=== PATIENT | female | born 1950 | race Caucasian/White ===

== ENCOUNTER 2017-06-03 12:43 | Emergency (ER) | payer OTHER, MEDICAID ==
[~2017-06-03] VITALS: Ht 157.4 cm; Wt 72.6 kg
[~2017-06-03 12:43] MED LIST: ASA; ASPIRIN81 M1 PO; CIDER VINEGAR; CINNAMON; GLIPIZIDE5 MG PO; HAIR SKIN NAIL; HYDROCODONE BIT1 T11 PO; LISINOPRIL20 MG PO; LISINOPRIL5 MG; METFORMIN HCL500 MG PO; METFORMIN1000 MG PO; MOTRIN800 MG PO; NEURONTIN100 MG PO; PERCOCET 325 MG1 TA2 PO; PRINIVIL10 MG PO; SIMVASTATIN20 MG PO; SIMVASTATIN80 MG PO; VIT D; VITAMIN C; VITAMIN D1000 IU PO; ZOVIRAX400 MG PO
[2017-06-03] MEDS ORDERED: NAPROSYN500 MG PO (15:04)
== END 2017-06-03 14:22 | disposition home or self-care (01) ==
LOC: ED 12:43
DX: S09.90XA Unspecified injury of head, initial encounter (principal); M25.512 Pain in left shoulder; E11.65 Type 2 diabetes mellitus with hyperglycemia; Z79.899 Other long term (current) drug therapy; Z79.82 Long term (current) use of aspirin; Z98.890 Other specified postprocedural states; W18.39XA Other fall on same level, initial encounter; Y93.01 Activity, walking, marching and hiking; Y92.89 Other specified places as the place of occurrence of the external cause; Y99.8 Other external cause status

== ENCOUNTER → 2019-08-26 | Day surgery (SDC) | payer OTHER, MEDICAID ==
[~2019-08-26] VITALS: Ht 154.9 cm; Wt 99.8 kg
[~2019-08-26] MED LIST changes: +CITALOPRAM20 MG PO; +LEVEMIR100 UNIT/1 SC; +LOSARTAN POTASS25 M1 PO; +NAPROSYN500 MG PO
[2019-08-26 07:40] VITALS: BP 142/56
[2019-08-26 09:10] VITALS: BP 111/80
[2019-08-26 09:25] VITALS: BP 142/71
[2019-08-26 09:40] VITALS: BP 158/67
== END | disposition home or self-care (01) ==
LOC: SDC 08-23 08:45
DX: Z12.11 Encounter for screening for malignant neoplasm of colon (principal); I10 Essential (primary) hypertension; E11.9 Type 2 diabetes mellitus without complications; F32.9 Major depressive disorder, single episode, unspecified; E66.01 Morbid (severe) obesity due to excess calories; Z68.41 Body mass index [BMI] 40.0-44.9, adult; Z98.890 Other specified postprocedural states; Z79.899 Other long term (current) drug therapy; Z79.82 Long term (current) use of aspirin; Z83.3 Family history of diabetes mellitus; Z82.49 Family history of ischemic heart disease and other diseases of the circulatory system
CPT/HCPCS: 00812; G0121

== ENCOUNTER 2020-05-26 14:35 | Emergency (ER) | payer OTHER, MEDICAID ==
[~2020-05-26] VITALS: Wt 100.7 kg
== END 2020-05-26 16:44 | disposition home or self-care (01) ==
LOC: ED 14:35
DX: Z04.3 Encounter for examination and observation following other accident (principal); R07.81 Pleurodynia; M79.602 Pain in left arm; R10.9 Unspecified abdominal pain; Z79.899 Other long term (current) drug therapy; Z79.84 Long term (current) use of oral hypoglycemic drugs; Z79.82 Long term (current) use of aspirin

== ENCOUNTER 2020-08-17 04:45 | Inpatient (IN) | payer OTHER, MEDICAID ==
[~2020-08-17] VITALS: Ht 154.9 cm; Wt 102.2 kg
[~2020-08-17 04:45] MED LIST changes: +METFORMIN HYD1000 MG PO; -METFORMIN1000 MG PO
[2020-08-17 04:52] VITALS: BP 175/71
[2020-08-17 06:20] LABS: BASO % 0.4 % (0.0-1.0); EOS # 0.1 10*3/uL (0.0-0.4); EOS % 0.7 % (1.0-4.0); HEMATOCRIT 38.6 % (37.0-47.0); LYMPH # 1.4 10*3/uL (1.3-4.4); LYMPH % 18.4 % (27.0-41.0); MEAN CELL VOLUME 89.8 fl (81.0-99.0); MEAN CORPUSCULAR HGB 27.7 pg (27.0-31.0); MEAN CORPUSCULAR HGB CONC 30.8 g/dl (33.0-37.0); MEAN PLATELET VOLUME 11.9 fl (9.6-12.3); MONO # 0.8 10*3/uL (0.1-1.0); MONO % 10.5 % (3.0-9.0); NEUT # 5.2 10*3/uL (2.3-7.9); NEUT % 69.7 % (47.0-73.0); PLATELET COUNT AUTOMATED 187 10*3/uL (130-400); RED CELL DISTRI WIDTH 13.2 % (0-14.5); WHITE BLOOD COUNT 7.5 10*3/uL (4.8-10.8)
[2020-08-17 06:37] LABS: ALBUMIN 3.2 gm/dl (3.1-4.5); ALKALINE PHOSPHATASE 46 U/L (45-117); BUN 13 mg/dl (7-24); CHLORIDE 108 mmol/L (98-107); CPK 141 U/L (26-192); CREATININE 1.09 mg/dL (0.55-1.02); LDH 209 U/L (84-246); POTASSIUM 4.1 mmol/L (3.5-5.1); SGOT/AST 16 IU/L (3-35); SGPT/ALT 23 U/L (12-78); SODIUM 140 mmol/L (136-145); TOTAL PROTEIN 6.7 gm/dL (6.4-8.2)
[2020-08-17 06:41] LABS: TROPONIN I < 0.015 ng/ml (<0.045)
[2020-08-17 07:58] LABS: BILIRUBIN Negative (Negative); BLOOD Trace-Lysed (Negative); CLARITY Clear (Clear); COLOR Yellow (Yellow); GLUCOSE 1+ (Negative); KETONE 2+ (Negative); LEUKO ESTERASE Negative (Negative); NITRITE Negative (Negative); SPECIFIC GRAVITY 1.025 (1.001-1.030); UROBILINOGEN 0.2 E.U./dl (0.0-1.0)
[2020-08-17 08:14] VITALS: BP 149/34
[2020-08-17 08:14] LABS: BACTERIA TRACE; COARSE GRANULAR CAST 0-2; YEAST NEGATIVE
[2020-08-17 12:01] LABS: ABG BASE EXCESS 0.6 mmol/L (-2.0-2.0); ARTERIAL BLOOD GAS PH 7.389 (7.35-7.45)
[2020-08-17 13:43] VITALS: BP 138/60
[2020-08-17] MEDS ORDERED: LOSARTAN-HCTZ1 EAC1 PO (15:28)
[2020-08-17] MEDS ORDERED: GLIPIZIDE10 M2 PO (15:29)
[2020-08-17 16:00] VITALS: BP 154/62
[2020-08-17 20:00] VITALS: BP 152/67
[2020-08-18] VITALS: BP 117/56
[2020-08-18 06:32] LABS: ALBUMIN 3.1 gm/dl (3.1-4.5); CREATININE 1.1 mg/dL (0.55-1.02); POTASSIUM 3.7 mmol/L (3.5-5.1); TOTAL PROTEIN 6.5 gm/dL (6.4-8.2)
[2020-08-18 06:42] LABS: BASO % 0.1 % (0.0-1.0); HEMATOCRIT 35.3 % (37.0-47.0); LYMPH # 2.2 10*3/uL (1.3-4.4); LYMPH % 26.9 % (27.0-41.0); MEAN CELL VOLUME 87.8 fl (81.0-99.0); MEAN CORPUSCULAR HGB 27.6 pg (27.0-31.0); MEAN CORPUSCULAR HGB CONC 31.4 g/dl (33.0-37.0); MEAN PLATELET VOLUME 12.8 fl (9.6-12.3); MONO % 11.7 % (3.0-9.0); NEUT # 4.9 10*3/uL (2.3-7.9); NEUT % 61.1 % (47.0-73.0); PLATELET COUNT AUTOMATED 194 10*3/uL (130-400); RED BLOOD COUNT 4.02 10*6/uL (4.10-5.10); RED CELL DISTRI WIDTH 13.3 % (0-14.5); WHITE BLOOD COUNT 8.1 10*3/uL (4.8-10.8)
[2020-08-18 07:44] LABS: VITAMIN D, 25-HYDROXY 29.9 ng/mL (30-100)
[2020-08-18 07:45] LABS: FERRITIN 39.7 ng/mL (10.0-291.0)
[2020-08-18 08:00] VITALS: BP 134/65
[2020-08-18 12:00] VITALS: BP 136/66
[2020-08-18 16:00] VITALS: BP 149/64
[2020-08-18 20:00] VITALS: BP 137/63
[2020-08-19] VITALS: BP 139/54
[2020-08-19 06:08] LABS: CREATININE 1.11 mg/dL (0.55-1.02); TOTAL PROTEIN 6.6 gm/dL (6.4-8.2)
[2020-08-19 06:18] LABS: BASO % 0.1 % (0.0-1.0); HEMATOCRIT 35.9 % (37.0-47.0); LYMPH # 2.3 10*3/uL (1.3-4.4); MEAN CELL VOLUME 88.2 fl (81.0-99.0); MEAN CORPUSCULAR HGB 27.8 pg (27.0-31.0); MEAN CORPUSCULAR HGB CONC 31.5 g/dl (33.0-37.0); MEAN PLATELET VOLUME 12.9 fl (9.6-12.3); MONO # 0.7 10*3/uL (0.1-1.0); MONO % 6.7 % (3.0-9.0); NEUT # 6.6 10*3/uL (2.3-7.9); NEUT % 68.8 % (47.0-73.0); PLATELET COUNT AUTOMATED 202 10*3/uL (130-400); RED BLOOD COUNT 4.07 10*6/uL (4.10-5.10); RED CELL DISTRI WIDTH 13.3 % (0-14.5); WHITE BLOOD COUNT 9.6 10*3/uL (4.8-10.8)
[2020-08-19 08:00] VITALS: BP 126/63
[2020-08-19 12:00] VITALS: BP 165/93
[2020-08-19 16:00] VITALS: BP 136/72
[2020-08-19 20:00] VITALS: BP 159/117
[2020-08-20] VITALS: BP 159/60
[2020-08-20 05:52] LABS: ALBUMIN 3.2 gm/dl (3.1-4.5); ALKALINE PHOSPHATASE 46 U/L (45-117); BUN 35 mg/dl (7-24); CHLORIDE 110 mmol/L (98-107); CPK 283 U/L (26-192); CREATININE 1.07 mg/dL (0.55-1.02); LDH 226 U/L (84-246); POTASSIUM 3.7 mmol/L (3.5-5.1); SGOT/AST 22 IU/L (3-35); SGPT/ALT 26 U/L (12-78); SODIUM 141 mmol/L (136-145); TOTAL PROTEIN 6.9 gm/dL (6.4-8.2)
[2020-08-20 06:06] LABS: BASO % 0.1 % (0.0-1.0); HEMATOCRIT 37.8 % (37.0-47.0); LYMPH # 2.6 10*3/uL (1.3-4.4); LYMPH % 24.3 % (27.0-41.0); MEAN CELL VOLUME 88.1 fl (81.0-99.0); MEAN CORPUSCULAR HGB 27.5 pg (27.0-31.0); MEAN CORPUSCULAR HGB CONC 31.2 g/dl (33.0-37.0); MEAN PLATELET VOLUME 12.7 fl (9.6-12.3); MONO # 0.8 10*3/uL (0.1-1.0); MONO % 7.6 % (3.0-9.0); NEUT # 7.2 10*3/uL (2.3-7.9); NEUT % 67.7 % (47.0-73.0); PLATELET COUNT AUTOMATED 214 10*3/uL (130-400); RED BLOOD COUNT 4.29 10*6/uL (4.10-5.10); RED CELL DISTRI WIDTH 13.2 % (0-14.5); WHITE BLOOD COUNT 10.6 10*3/uL (4.8-10.8)
[2020-08-20 08:00] VITALS: BP 148/64
[2020-08-20 12:00] VITALS: BP 146/64
[2020-08-20 16:00] VITALS: BP 133/48
[2020-08-20 20:00] VITALS: BP 173/76
[2020-08-21] VITALS: BP 177/66
[2020-08-21 05:38] LABS: CREATININE 1.07 mg/dL (0.55-1.02)
[2020-08-21 06:46] LABS: BASO % 0.1 % (0.0-1.0); HEMATOCRIT 37.6 % (37.0-47.0); LYMPH # 2.5 10*3/uL (1.3-4.4); LYMPH % 23.3 % (27.0-41.0); MEAN CORPUSCULAR HGB 27.2 pg (27.0-31.0); MEAN CORPUSCULAR HGB CONC 31.6 g/dl (33.0-37.0); MEAN PLATELET VOLUME 13.5 fl (9.6-12.3); MONO # 0.8 10*3/uL (0.1-1.0); MONO % 7.5 % (3.0-9.0); NEUT # 7.5 10*3/uL (2.3-7.9); NEUT % 68.7 % (47.0-73.0); PLATELET COUNT AUTOMATED 205 10*3/uL (130-400); RED BLOOD COUNT 4.37 10*6/uL (4.10-5.10); WHITE BLOOD COUNT 10.9 10*3/uL (4.8-10.8)
[2020-08-21 08:00] VITALS: BP 149/65
[2020-08-21 12:00] VITALS: BP 121/53
[2020-08-21] MEDS ORDERED: DECADRON6 M1 PO (12:36)
== END 2020-08-21 15:36 | disposition home health service (06) | DRG 177 ==
LOC: ED 04:45 → 4E 07:08 → EDHOLD 07:08 → 4E 12:51
PROVIDERS: Emergency Medicine; Registered Nurse; ADMIT Internal Medicine; ATTEND Internal Medicine
PROC: XW033E5 Introduction of Remdesivir Anti-infective into Peripheral Vein, Percutaneous Approach, New Technology Group 5 (ICD-10-PCS; principal; 2020-08-18)
DX: U07.1 COVID-19 (principal); N17.0 Acute kidney failure with tubular necrosis; J96.01 Acute respiratory failure with hypoxia; E44.0 Moderate protein-calorie malnutrition; Z68.41 Body mass index [BMI] 40.0-44.9, adult; E11.65 Type 2 diabetes mellitus with hyperglycemia; F41.1 Generalized anxiety disorder; D64.9 Anemia, unspecified; E86.0 Dehydration; E78.2 Mixed hyperlipidemia; I10 Essential (primary) hypertension; W19.XXXA Unspecified fall, initial encounter; Y93.89 Activity, other specified; Y92.89 Other specified places as the place of occurrence of the external cause; Y99.8 Other external cause status; Z79.4 Long term (current) use of insulin; Z82.49 Family history of ischemic heart disease and other diseases of the circulatory system; Z83.3 Family history of diabetes mellitus; Z79.82 Long term (current) use of aspirin; Z79.899 Other long term (current) drug therapy

== ENCOUNTER 2021-06-16 21:40 | Emergency (ER) | payer OTHER, MEDICAID ==
[~2021-06-16] VITALS: Ht 154.9 cm; Wt 100.5 kg
[~2021-06-16 21:40] MED LIST changes: +DECADRON6 M1 PO; +GLIPIZIDE10 M2 PO; +LOSARTAN-HCTZ1 EAC1 PO
[2021-06-16 22:37] LABS: BASO % 0.1 % (0.0-1.0); EOS # 0.2 10*3/uL (0.0-0.4); EOS % 1.6 % (1.0-4.0); HEMATOCRIT 33.8 % (37.0-47.0); LYMPH # 0.8 10*3/uL (1.3-4.4); LYMPH % 6.3 % (27.0-41.0); MEAN CELL VOLUME 82.6 fl (81.0-99.0); MEAN CORPUSCULAR HGB 24.9 pg (27.0-31.0); MEAN CORPUSCULAR HGB CONC 30.2 g/dl (33.0-37.0); MEAN PLATELET VOLUME 11.3 fl (9.6-12.3); MONO # 1.2 10*3/uL (0.1-1.0); MONO % 9.6 % (3.0-9.0); NEUT # 10.4 10*3/uL (2.3-7.9); NEUT % 82.2 % (47.0-73.0); PLATELET COUNT AUTOMATED 281 10*3/uL (130-400); RED BLOOD COUNT 4.09 10*6/uL (4.10-5.10); RED CELL DISTRI WIDTH 15.2 % (0-14.5); WHITE BLOOD COUNT 12.7 10*3/uL (4.8-10.8)
[2021-06-16 22:55] LABS: ALKALINE PHOSPHATASE 50 U/L (45-117); BUN 29 mg/dl (7-24); CHLORIDE 113 mmol/L (98-107); CREATININE 1.69 mg/dL (0.55-1.02); LIPASE 249 U/L (73-393); SGOT/AST 16 IU/L (3-35); SGPT/ALT 18 U/L (12-78); SODIUM 143 mmol/L (136-145); TOTAL PROTEIN 6.9 gm/dL (6.4-8.2)
[2021-06-16 23:52] LABS: BILIRUBIN Negative (Negative); BLOOD Negative (Negative); CLARITY Turbid (Clear); COLOR Dark Yellow (Yellow); GLUCOSE Negative (Negative); KETONE 1+ (Negative); LEUKO ESTERASE 2+ (Negative); NITRITE Negative (Negative); SPECIFIC GRAVITY >= 1.030 (1.001-1.030)
[2021-06-17 00:14] LABS: WBC 41-50 wbc/hpf (0-5)
[2021-06-17 00:15] LABS: BACTERIA 4+
[2021-06-17] MEDS ORDERED: CIPRO500 MG PO (02:20)
== END 2021-06-17 03:02 | disposition home or self-care (01) ==
LOC: ED 21:40
PROVIDERS: Internal Medicine
DX: N39.0 Urinary tract infection, site not specified (principal); E88.09 Other disorders of plasma-protein metabolism, not elsewhere classified; E83.42 Hypomagnesemia; D72.829 Elevated white blood cell count, unspecified; D64.9 Anemia, unspecified; Z79.899 Other long term (current) drug therapy; Z79.82 Long term (current) use of aspirin

== ENCOUNTER 2021-11-29 08:54 | Emergency (ER) | payer OTHER, MEDICAID ==
[~2021-11-29] VITALS: Ht 154.9 cm; Wt 95.3 kg
[~2021-11-29 08:54] MED LIST changes: +CIPRO500 MG PO
[2021-11-29 09:22] LABS: BASO % 0.3 % (0.0-1.0); EOS % 0.2 % (1.0-4.0); HEMATOCRIT 29.5 % (37.0-47.0); LYMPH % 10.9 % (27.0-41.0); MEAN CELL VOLUME 80.4 fl (81.0-99.0); MEAN CORPUSCULAR HGB CONC 29.8 g/dl (33.0-37.0); MEAN PLATELET VOLUME 10.7 fl (9.6-12.3); MONO # 0.4 10*3/uL (0.1-1.0); NEUT # 7.7 10*3/uL (2.3-7.9); NEUT % 84.4 % (47.0-73.0); PLATELET COUNT AUTOMATED 260 10*3/uL (130-400); RED BLOOD COUNT 3.67 10*6/uL (4.10-5.10); RED CELL DISTRI WIDTH 17.8 % (0-14.5); WHITE BLOOD COUNT 9.2 10*3/uL (4.8-10.8)
[2021-11-29 09:39] LABS: ALKALINE PHOSPHATASE 47 U/L (45-117); BUN 20 mg/dl (7-24); CHLORIDE 109 mmol/L (98-107); CREATININE 1.08 mg/dL (0.55-1.02); POTASSIUM 3.5 mmol/L (3.5-5.1); SGOT/AST 16 IU/L (3-35); SGPT/ALT 13 U/L (12-78); SODIUM 143 mmol/L (136-145); TOTAL PROTEIN 6.2 gm/dL (6.4-8.2)
== END 2021-11-29 12:24 | disposition home or self-care (01) ==
LOC: ED 08:54
PROVIDERS: Internal Medicine
DX: E11.649 Type 2 diabetes mellitus with hypoglycemia without coma (principal); Z79.899 Other long term (current) drug therapy; Z98.890 Other specified postprocedural states

== ENCOUNTER 2022-01-09 16:42 | Inpatient (IN) | payer OTHER, MEDICAID ==
[~2022-01-09] VITALS: Ht 154.9 cm; Wt 90.5 kg
[2022-01-09] VITALS: BP 146/73
[2022-01-09 16:45] VITALS: BP 111/45
[2022-01-09 17:32] LABS: ACT PARTIAL THROMBO TIME 23.6 SECONDS (20.0-32.1)
[2022-01-09 17:34] LABS: CREATININE 1.52 mg/dL (0.55-1.02); POTASSIUM 3.6 mmol/L (3.5-5.1); TOTAL PROTEIN 6.2 gm/dL (6.4-8.2)
[2022-01-09 18:08] LABS: BASO # 0.1 10*3/uL (0.0-0.1); BASO % 0.5 % (0.0-1.0); EOS # 0.1 10*3/uL (0.0-0.4); HEMATOCRIT 35.4 % (37.0-47.0); LYMPH # 1.6 10*3/uL (1.3-4.4); LYMPH % 15.2 % (27.0-41.0); MEAN CELL VOLUME 86.3 fl (81.0-99.0); MEAN CORPUSCULAR HGB 25.9 pg (27.0-31.0); MEAN CORPUSCULAR HGB CONC 29.9 g/dl (33.0-37.0); MEAN PLATELET VOLUME 11.6 fl (9.6-12.3); MONO # 0.6 10*3/uL (0.1-1.0); MONO % 5.8 % (3.0-9.0); NEUT % 77.1 % (47.0-73.0); PLATELET COUNT AUTOMATED 272 10*3/uL (130-400); RED CELL DISTRI WIDTH 18.4 % (0-14.5); WHITE BLOOD COUNT 10.4 10*3/uL (4.8-10.8)
[2022-01-09 19:17] LABS: BILIRUBIN Negative (Negative); BLOOD Negative (Negative); CLARITY Cloudy (Clear); COLOR Yellow (Yellow); GLUCOSE Negative (Negative); KETONE Negative (Negative); LEUKO ESTERASE 1+ (Negative); NITRITE Negative (Negative); SPECIFIC GRAVITY 1.015 (1.001-1.030); UROBILINOGEN 0.2 E.U./dl (0.0-1.0)
[2022-01-09 19:30] LABS: BACTERIA 1+; WBC 21-30 wbc/hpf (0-5)
[2022-01-09 20:00] VITALS: BP 146/73
[2022-01-10] VITALS: BP 124/88
[2022-01-10 04:08] LABS: BASO % 0.5 % (0.0-1.0); EOS # 0.2 10*3/uL (0.0-0.4); EOS % 2.1 % (1.0-4.0); HEMATOCRIT 31.7 % (37.0-47.0); LYMPH # 2.9 10*3/uL (1.3-4.4); LYMPH % 32.2 % (27.0-41.0); MEAN CELL VOLUME 86.1 fl (81.0-99.0); MEAN CORPUSCULAR HGB 25.3 pg (27.0-31.0); MEAN CORPUSCULAR HGB CONC 29.3 g/dl (33.0-37.0); MEAN PLATELET VOLUME 11.3 fl (9.6-12.3); MONO # 0.9 10*3/uL (0.1-1.0); MONO % 9.7 % (3.0-9.0); NEUT # 4.9 10*3/uL (2.3-7.9); NEUT % 55.3 % (47.0-73.0); PLATELET COUNT AUTOMATED 240 10*3/uL (130-400); RED BLOOD COUNT 3.68 10*6/uL (4.10-5.10); RED CELL DISTRI WIDTH 18.3 % (0-14.5); WHITE BLOOD COUNT 8.9 10*3/uL (4.8-10.8)
[2022-01-10 04:25] LABS: CREATININE 1.36 mg/dL (0.55-1.02); TOTAL PROTEIN 5.7 gm/dL (6.4-8.2)
[2022-01-10 04:26] LABS: FREE T4 1.08 ng/dl (0.76-1.46)
[2022-01-10 04:31] LABS: THYROID STIM HORMONE (HS) 1.64 uIU/ml (0.358-4.75)
[2022-01-10 05:00] VITALS: BP 127/95
[2022-01-10 08:02] VITALS: BP 147/50
[2022-01-10] MEDS ORDERED: LEVEMIR100 UNIT/1 SC (10:52)
[2022-01-10] MEDS ORDERED: ALDACTONE25 MG PO (10:53)
[2022-01-10] MEDS ORDERED: FUROSEMIDE40 MG PO (10:54)
[2022-01-10] MEDS ORDERED: LOSARTAN POTAS100 M1 PO (10:54)
[2022-01-10] MEDS ORDERED: METOPROLOL TART50 M1 PO (10:55)
[2022-01-10] MEDS ORDERED: VITAMIN C500 M1 PO (10:56)
[2022-01-10] MEDS ORDERED: FEROSUL325 M1 PO (10:56)
[2022-01-10] MEDS ORDERED: OMEPRAZOLE MAGN20 MG PO (11:02)
[2022-01-10 12:00] VITALS: BP 143/67
[2022-01-10 16:00] VITALS: BP 148/82
[2022-01-10 20:00] VITALS: BP 148/55
[2022-01-11] VITALS: BP 146/73
[2022-01-11 06:12] LABS: BASO # 0.1 10*3/uL (0.0-0.1); BASO % 0.6 % (0.0-1.0); EOS # 0.4 10*3/uL (0.0-0.4); EOS % 5.1 % (1.0-4.0); HEMATOCRIT 33.3 % (37.0-47.0); LYMPH # 2.8 10*3/uL (1.3-4.4); LYMPH % 34.8 % (27.0-41.0); MEAN CELL VOLUME 86.9 fl (81.0-99.0); MEAN CORPUSCULAR HGB 25.6 pg (27.0-31.0); MEAN CORPUSCULAR HGB CONC 29.4 g/dl (33.0-37.0); MEAN PLATELET VOLUME 11.7 fl (9.6-12.3); MONO # 0.8 10*3/uL (0.1-1.0); MONO % 9.4 % (3.0-9.0); NEUT # 4.1 10*3/uL (2.3-7.9); NEUT % 49.9 % (47.0-73.0); PLATELET COUNT AUTOMATED 282 10*3/uL (130-400); RED BLOOD COUNT 3.83 10*6/uL (4.10-5.10); RED CELL DISTRI WIDTH 18.2 % (0-14.5); WHITE BLOOD COUNT 8.2 10*3/uL (4.8-10.8)
[2022-01-11 06:49] LABS: CREATININE 1.17 mg/dL (0.55-1.02); POTASSIUM 4.1 mmol/L (3.5-5.1)
[2022-01-11 08:00] VITALS: BP 149/61
[2022-01-11 12:00] VITALS: BP 147/55
[2022-01-11 16:00] VITALS: BP 163/60
[2022-01-11 20:00] VITALS: BP 165/82
[2022-01-12] VITALS: BP 149/61
[2022-01-12 05:43] LABS: CREATININE 1.48 mg/dL (0.55-1.02); POTASSIUM 3.8 mmol/L (3.5-5.1)
[2022-01-12 06:23] LABS: BASO % 0.3 % (0.0-1.0); EOS # 0.2 10*3/uL (0.0-0.4); EOS % 2.7 % (1.0-4.0); HEMATOCRIT 31.6 % (37.0-47.0); LYMPH # 1.4 10*3/uL (1.3-4.4); LYMPH % 23.5 % (27.0-41.0); MEAN CELL VOLUME 85.2 fl (81.0-99.0); MEAN CORPUSCULAR HGB 25.9 pg (27.0-31.0); MEAN CORPUSCULAR HGB CONC 30.4 g/dl (33.0-37.0); MEAN PLATELET VOLUME 12.3 fl (9.6-12.3); MONO # 0.2 10*3/uL (0.1-1.0); MONO % 3.3 % (3.0-9.0); NEUT # 4.2 10*3/uL (2.3-7.9); NEUT % 69.9 % (47.0-73.0); PLATELET COUNT AUTOMATED 232 10*3/uL (130-400); RED BLOOD COUNT 3.71 10*6/uL (4.10-5.10); RED CELL DISTRI WIDTH 17.8 % (0-14.5)
[2022-01-12 08:00] VITALS: BP 156/71
[2022-01-12 12:00] VITALS: BP 159/70
[2022-01-12 16:00] VITALS: BP 159/73
[2022-01-12 20:00] VITALS: BP 167/76
[2022-01-13] VITALS: BP 173/69
[2022-01-13 02:00] VITALS: BP 160/58
[2022-01-13 08:00] VITALS: BP 179/67
[2022-01-13] MEDS ORDERED: AMOX-CLAV 875-1 EACH PO (10:10)
[2022-01-13] MEDS ORDERED: LANTUS SOL100 UNIT/1 SC (10:13)
== END 2022-01-13 11:10 | disposition home or self-care (01) | DRG 689 ==
LOC: ED 16:42 → 5E 23:44 → EDHOLD 23:44 → 5E 01-10 07:30
PROVIDERS: Emergency Medicine; Internal Medicine; Student in an Organized Health Care Education/Training Program; ADMIT Internal Medicine; ATTEND Internal Medicine
DX: N30.90 Cystitis, unspecified without hematuria (principal); E43 Unspecified severe protein-calorie malnutrition; N17.0 Acute kidney failure with tubular necrosis; E87.2 Acidosis; N13.30 Unspecified hydronephrosis; D64.9 Anemia, unspecified; F41.1 Generalized anxiety disorder; N18.32 Chronic kidney disease, stage 3b; I12.9 Hypertensive chronic kidney disease with stage 1 through stage 4 chronic kidney disease, or unspecified chronic kidney disease; K52.9 Noninfective gastroenteritis and colitis, unspecified; K20.90 Esophagitis, unspecified without bleeding; E11.22 Type 2 diabetes mellitus with diabetic chronic kidney disease; K80.20 Calculus of gallbladder without cholecystitis without obstruction; Z20.822 Contact with and (suspected) exposure to COVID-19; Z82.49 Family history of ischemic heart disease and other diseases of the circulatory system; Z68.37 Body mass index [BMI] 37.0-37.9, adult

== ENCOUNTER 2022-01-22 09:54 | Inpatient (IN) | payer OTHER, MEDICAID ==
[~2022-01-22] VITALS: Ht 154.9 cm; Wt 84.5 kg
[2022-01-22 00:03] VITALS: BP 155/65
[~2022-01-22 09:54] MED LIST changes: +ALDACTONE25 MG PO; +AMOX-CLAV 875-1 EACH PO; +FEROSUL325 M1 PO; +FUROSEMIDE40 MG PO; +LANTUS SOL100 UNIT/1 SC; +LOSARTAN POTAS100 M1 PO; +METOPROLOL TART50 M1 PO; +OMEPRAZOLE MAGN20 MG PO; +VITAMIN C500 M1 PO
[2022-01-22 09:58] VITALS: BP 141/65
[2022-01-22] MEDS ORDERED: LEVEMIR FL100 UNIT/1 SQ (10:07)
[2022-01-22 11:02] LABS: BASO % 0.3 % (0.0-1.0); EOS # 0.2 10*3/uL (0.0-0.4); EOS % 1.9 % (1.0-4.0); HEMATOCRIT 36.9 % (37.0-47.0); LYMPH # 2.4 10*3/uL (1.3-4.4); LYMPH % 20.1 % (27.0-41.0); MEAN CELL VOLUME 83.5 fl (81.0-99.0); MEAN CORPUSCULAR HGB 25.1 pg (27.0-31.0); MEAN CORPUSCULAR HGB CONC 30.1 g/dl (33.0-37.0); MEAN PLATELET VOLUME 11.9 fl (9.6-12.3); MONO # 1.1 10*3/uL (0.1-1.0); MONO % 9.7 % (3.0-9.0); NEUT % 67.7 % (47.0-73.0); PLATELET COUNT AUTOMATED 241 10*3/uL (130-400); RED BLOOD COUNT 4.42 10*6/uL (4.10-5.10); RED CELL DISTRI WIDTH 16.9 % (0-14.5); WHITE BLOOD COUNT 11.8 10*3/uL (4.8-10.8)
[2022-01-22 11:20] LABS: ACT PARTIAL THROMBO TIME 27.1 SECONDS (20.0-32.1)
[2022-01-22 11:28] LABS: CREATININE 1.14 mg/dL (0.55-1.02); TOTAL PROTEIN 6.3 gm/dL (6.4-8.2)
[2022-01-22 12:00] VITALS: BP 155/65
[2022-01-22 13:27] LABS: BILIRUBIN Negative (Negative); BLOOD Negative (Negative); CLARITY Turbid (Clear); COLOR Yellow (Yellow); GLUCOSE Negative (Negative); KETONE 1+ (Negative); LEUKO ESTERASE 1+ (Negative); NITRITE Negative (Negative); SPECIFIC GRAVITY 1.025 (1.001-1.030)
[2022-01-22 13:42] LABS: BACTERIA 1+; CALCIUM OXALATE CRYSTALS 4+; EPITHELIAL CELLS 31-40
[2022-01-22 15:00] VITALS: BP 156/68
[2022-01-22 16:45] VITALS: BP 145/69
[2022-01-22 20:00] VITALS: BP 137/45
[2022-01-23] VITALS: BP 122/52
[2022-01-23 05:59] LABS: CREATININE 1.25 mg/dL (0.55-1.02)
[2022-01-23 06:27] LABS: BASO % 0.4 % (0.0-1.0); EOS # 0.3 10*3/uL (0.0-0.4); EOS % 2.6 % (1.0-4.0); HEMATOCRIT 33.7 % (37.0-47.0); LYMPH % 20.6 % (27.0-41.0); MEAN CORPUSCULAR HGB 25.1 pg (27.0-31.0); MEAN CORPUSCULAR HGB CONC 30.3 g/dl (33.0-37.0); MONO # 1.1 10*3/uL (0.1-1.0); MONO % 11.3 % (3.0-9.0); NEUT # 6.3 10*3/uL (2.3-7.9); NEUT % 64.8 % (47.0-73.0); PLATELET COUNT AUTOMATED 215 10*3/uL (130-400); RED BLOOD COUNT 4.06 10*6/uL (4.10-5.10); WHITE BLOOD COUNT 9.7 10*3/uL (4.8-10.8)
[2022-01-23 08:00] VITALS: BP 121/51
[2022-01-23 12:00] VITALS: BP 106/70
[2022-01-23 16:00] VITALS: BP 143/40
[2022-01-23 20:00] VITALS: BP 127/59
[2022-01-24] VITALS: BP 123/46
[2022-01-24 08:00] VITALS: BP 127/54
[2022-01-24 12:00] VITALS: BP 106/71
[2022-01-24 16:00] VITALS: BP 126/63
[2022-01-24 20:00] VITALS: BP 138/46
[2022-01-25] VITALS: BP 125/45
[2022-01-25 08:00] VITALS: BP 157/68
[2022-01-25 12:00] VITALS: BP 139/53
[2022-01-25 16:00] VITALS: BP 140/49
[2022-01-25 20:00] VITALS: BP 147/57
[2022-01-26] VITALS: BP 117/48
[2022-01-26 05:58] LABS: CREATININE 3.09 mg/dL (0.55-1.02); TOTAL PROTEIN 5.2 gm/dL (6.4-8.2)
[2022-01-26 06:10] LABS: BASO % 0.4 % (0.0-1.0); EOS # 0.2 10*3/uL (0.0-0.4); EOS % 2.1 % (1.0-4.0); HEMATOCRIT 30.9 % (37.0-47.0); LYMPH # 2.1 10*3/uL (1.3-4.4); LYMPH % 21.3 % (27.0-41.0); MEAN CELL VOLUME 82.6 fl (81.0-99.0); MEAN CORPUSCULAR HGB 25.7 pg (27.0-31.0); MEAN CORPUSCULAR HGB CONC 31.1 g/dl (33.0-37.0); MONO # 0.9 10*3/uL (0.1-1.0); MONO % 9.6 % (3.0-9.0); NEUT # 6.5 10*3/uL (2.3-7.9); NEUT % 66.3 % (47.0-73.0); PLATELET COUNT AUTOMATED 215 10*3/uL (130-400); RED BLOOD COUNT 3.74 10*6/uL (4.10-5.10); WHITE BLOOD COUNT 9.8 10*3/uL (4.8-10.8)
[2022-01-26 08:00] VITALS: BP 144/64
[2022-01-26 12:00] VITALS: BP 96/68
[2022-01-26 16:00] VITALS: BP 129/50
[2022-01-26 20:00] VITALS: BP 142/54
[2022-01-27 05:58] LABS: CREATININE 3.33 mg/dL (0.55-1.02); POTASSIUM 3.9 mmol/L (3.5-5.1); TOTAL PROTEIN 5.4 gm/dL (6.4-8.2)
[2022-01-27 06:13] LABS: BASO # 0.1 10*3/uL (0.0-0.1); BASO % 0.5 % (0.0-1.0); EOS # 0.2 10*3/uL (0.0-0.4); EOS % 1.5 % (1.0-4.0); HEMATOCRIT 29.3 % (37.0-47.0); LYMPH # 2.3 10*3/uL (1.3-4.4); LYMPH % 23.3 % (27.0-41.0); MEAN CELL VOLUME 83.5 fl (81.0-99.0); MEAN CORPUSCULAR HGB 25.9 pg (27.0-31.0); MEAN CORPUSCULAR HGB CONC 31.1 g/dl (33.0-37.0); MEAN PLATELET VOLUME 12.1 fl (9.6-12.3); MONO % 10.2 % (3.0-9.0); NEUT # 6.3 10*3/uL (2.3-7.9); NEUT % 64.1 % (47.0-73.0); PLATELET COUNT AUTOMATED 229 10*3/uL (130-400); RED BLOOD COUNT 3.51 10*6/uL (4.10-5.10); RED CELL DISTRI WIDTH 17.2 % (0-14.5); WHITE BLOOD COUNT 9.9 10*3/uL (4.8-10.8)
[2022-01-27 08:00] VITALS: BP 127/47
[2022-01-27 12:00] VITALS: BP 130/88
[2022-01-27 16:00] VITALS: BP 145/88
[2022-01-27 20:00] VITALS: BP 147/57
[2022-01-28] VITALS: BP 144/57
[2022-01-28 06:25] LABS: CREATININE 2.72 mg/dL (0.55-1.02); POTASSIUM 4.2 mmol/L (3.5-5.1); TOTAL PROTEIN 5.7 gm/dL (6.4-8.2)
[2022-01-28 07:06] LABS: BASO % 0.4 % (0.0-1.0); EOS # 0.3 10*3/uL (0.0-0.4); EOS % 3.4 % (1.0-4.0); HEMATOCRIT 32.5 % (37.0-47.0); LYMPH # 1.9 10*3/uL (1.3-4.4); LYMPH % 19.6 % (27.0-41.0); MEAN CELL VOLUME 83.5 fl (81.0-99.0); MEAN CORPUSCULAR HGB 25.2 pg (27.0-31.0); MEAN CORPUSCULAR HGB CONC 30.2 g/dl (33.0-37.0); MEAN PLATELET VOLUME 12.8 fl (9.6-12.3); MONO # 0.9 10*3/uL (0.1-1.0); MONO % 9.3 % (3.0-9.0); NEUT # 6.5 10*3/uL (2.3-7.9); PLATELET COUNT AUTOMATED 233 10*3/uL (130-400); RED BLOOD COUNT 3.89 10*6/uL (4.10-5.10); RED CELL DISTRI WIDTH 17.3 % (0-14.5); WHITE BLOOD COUNT 9.7 10*3/uL (4.8-10.8)
[2022-01-28 08:00] VITALS: BP 129/46
[2022-01-28 12:00] VITALS: BP 137/46
[2022-01-28 16:00] VITALS: BP 151/62
[2022-01-28 20:00] VITALS: BP 144/60
== END 2022-01-28 22:00 | disposition short-term general hospital (02) | DRG 391 ==
LOC: ED 09:54 → EDHOLD 14:53 → 5E 14:53
PROVIDERS: Emergency Medicine; Internal Medicine; Registered Nurse; Student in an Organized Health Care Education/Training Program; ADMIT Internal Medicine; ATTEND Internal Medicine
PROC: 0HBRXZZ Excision of Toe Nail, External Approach (ICD-10-PCS; principal; 2022-01-23)
PROC: 0HBRXZZ Excision of Toe Nail, External Approach (ICD-10-PCS; 2022-01-23)
PROC: 0HBRXZZ Excision of Toe Nail, External Approach (ICD-10-PCS; 2022-01-23)
PROC: 0HBRXZZ Excision of Toe Nail, External Approach (ICD-10-PCS; 2022-01-23)
PROC: 0HBRXZZ Excision of Toe Nail, External Approach (ICD-10-PCS; 2022-01-23)
PROC: 0HBRXZZ Excision of Toe Nail, External Approach (ICD-10-PCS; 2022-01-23)
PROC: 0HBRXZZ Excision of Toe Nail, External Approach (ICD-10-PCS; 2022-01-23)
PROC: 0HBRXZZ Excision of Toe Nail, External Approach (ICD-10-PCS; 2022-01-23)
PROC: 0HBRXZZ Excision of Toe Nail, External Approach (ICD-10-PCS; 2022-01-23)
PROC: 0HBRXZZ Excision of Toe Nail, External Approach (ICD-10-PCS; 2022-01-23)
PROC: 02HV33Z Insertion of Infusion Device into Superior Vena Cava, Percutaneous Approach (ICD-10-PCS; 2022-01-26)
PROC: B548ZZA Ultrasonography of Superior Vena Cava, Guidance (ICD-10-PCS; 2022-01-26)
DX: K52.9 Noninfective gastroenteritis and colitis, unspecified (principal); N17.0 Acute kidney failure with tubular necrosis; J96.01 Acute respiratory failure with hypoxia; E43 Unspecified severe protein-calorie malnutrition; N13.30 Unspecified hydronephrosis; K29.00 Acute gastritis without bleeding; A08.4 Viral intestinal infection, unspecified; E86.0 Dehydration; I12.9 Hypertensive chronic kidney disease with stage 1 through stage 4 chronic kidney disease, or unspecified chronic kidney disease; N18.32 Chronic kidney disease, stage 3b; K80.20 Calculus of gallbladder without cholecystitis without obstruction; L60.3 Nail dystrophy; Z20.822 Contact with and (suspected) exposure to COVID-19; E11.65 Type 2 diabetes mellitus with hyperglycemia; F41.1 Generalized anxiety disorder; E87.6 Hypokalemia; E11.22 Type 2 diabetes mellitus with diabetic chronic kidney disease; E11.40 Type 2 diabetes mellitus with diabetic neuropathy, unspecified; E83.39 Other disorders of phosphorus metabolism; Z66 Do not resuscitate; D64.9 Anemia, unspecified; E78.2 Mixed hyperlipidemia; E66.9 Obesity, unspecified; F32.9 Major depressive disorder, single episode, unspecified; Z98.891 History of uterine scar from previous surgery; Z82.49 Family history of ischemic heart disease and other diseases of the circulatory system; Z79.4 Long term (current) use of insulin; Z68.35 Body mass index [BMI] 35.0-35.9, adult

== ENCOUNTER 2022-02-12 17:46 | Emergency (ER) | payer OTHER, MEDICAID ==
[~2022-02-12] VITALS: Ht 157.4 cm; Wt 95.4 kg
[~2022-02-12 17:46] MED LIST changes: +LEVEMIR FL100 UNIT/1 SQ
[2022-02-12 17:51] VITALS: BP 116/51
[2022-02-12 18:30] LABS: BILIRUBIN 1+ (Negative); BLOOD 3+ (Negative); CLARITY Turbid (Clear); COLOR Orange (Yellow); GLUCOSE Negative (Negative); KETONE Trace (Negative); LEUKO ESTERASE 3+ (Negative); NITRITE Negative (Negative); PH 5.5 (4.5-8.0); UROBILINOGEN 0.2 E.U./dl (0.0-1.0)
[2022-02-12 18:40] LABS: RBC TNTC rbc/hpf (0-2); WBC TNTC wbc/hpf (0-5)
[2022-02-12 18:41] LABS: BACTERIA 3+
[2022-02-12 18:54] LABS: BASO # 0.1 10*3/uL (0.0-0.1); BASO % 0.5 % (0.0-1.0); EOS # 0.1 10*3/uL (0.0-0.4); EOS % 0.6 % (1.0-4.0); HEMATOCRIT 31.1 % (37.0-47.0); LYMPH # 2.2 10*3/uL (1.3-4.4); LYMPH % 15.9 % (27.0-41.0); MEAN CELL VOLUME 83.8 fl (81.0-99.0); MEAN CORPUSCULAR HGB 25.3 pg (27.0-31.0); MEAN CORPUSCULAR HGB CONC 30.2 g/dl (33.0-37.0); MEAN PLATELET VOLUME 11.6 fl (9.6-12.3); MONO % 7.2 % (3.0-9.0); NEUT # 10.5 10*3/uL (2.3-7.9); NEUT % 75.5 % (47.0-73.0); PLATELET COUNT AUTOMATED 173 10*3/uL (130-400); RED BLOOD COUNT 3.71 10*6/uL (4.10-5.10); RED CELL DISTRI WIDTH 17.8 % (0-14.5)
[2022-02-12 19:10] LABS: CREATININE 4.56 mg/dL (0.55-1.02); POTASSIUM 3.8 mmol/L (3.5-5.1); TOTAL PROTEIN 5.5 gm/dL (6.4-8.2)
[2022-02-12 20:46] VITALS: BP 133/56
[2022-02-12 23:30] VITALS: BP 145/58
[2022-02-13] VITALS: BP 141/54
[2022-02-13 00:30] VITALS: BP 156/60
[2022-02-13 02:00] VITALS: BP 134/47
[2022-02-13 02:30] VITALS: BP 126/51
== END 2022-02-13 03:57 ==
LOC: ED 17:46 → EDHOLD 19:29 → ED 19:29
PROVIDERS: Emergency Medicine
DX: N39.0 Urinary tract infection, site not specified (principal); N17.9 Acute kidney failure, unspecified; Z79.899 Other long term (current) drug therapy; Z98.890 Other specified postprocedural states